=== PATIENT | female | born 1955 | race Caucasian/White ===

== ENCOUNTER → 2019-02-13 | Outpatient (CLI) | payer BC, OTHER ==
[~2019-02-13] MED LIST: ASPIRIN EC81 M1 PO; GLUCOPHAGE1000 MG PO; HYDROCHLOROTHIA25 M1; LISINOPRIL20 MG PO
--- NOTE | 2019-02-15 11:07 | PATH ---
[facility] [place] [address] PATHOLOGY RPT PROCEDURE Name: MAVIS A Room #: REG [facility] Suni.#: [id number] ������������������ Admission: 02/13/19 ������������������ Date of : 53 Discharge: Report #: [id number] Path Case #: [id number] L[facility] Accession Number: [id number] . 01 Material submitted: . PART A: breast - RIGHT POSTERIOR BREAST CALCIFICATIONS. Modifiers: right, posterior PART B: breast - RIGHT ANTERIOR BREAST CALCIFICATIONS. Modifiers: right, anterior . 01 Clinical history: . Right breast calcifications . 02 Diagnosis: A. Breast, right posterior breast, stereotactic needle core biopsy: - Sclerotic and calcified fibroadenoma associated with coarse calcifications. - Negative for atypia or malignancy. . B. Breast, right anterior breast, stereotactic needle core biopsy: - Sclerotic and calcified fibroadenoma associated with coarse calcifications. - Negative for atypia or malignancy. . (IUV:jes; 02/14/2019) MBR/02/14/2019 . 02 Comment: Habilitation Specialist slides were co-reviewed by Dr. Miranda Treviño who concurs with my diagnosis. (IUV:iron erector; 02/14/2019) . 02 Electronically signed: . Martha Rivas MD, Pathologist NPI- [id number] . 01 Gross description: . A. The specimen is received in formalin, labeled "Mavis Blandon, Lizbeth right" and additionally labeled on the requisition as "posterior". Received is a white cassette containing multiple needle cores of yellow-pink fibroadipose tissue measuring 3.4 x 2.3 x 0.5 cm in aggregate which are transferred to cassette A1. See separately are 2 needle cores of yellow lobulated tissue measuring 1.0 cm and 2.8 cm in length and 0.4-0.5 cm in diameter. They are entirely submitted in A2. The specimen was collected at 11:19 AM on 02/13/2019 and placed in formalin at 11:21 AM. The cold ischemic time is 2 minutes and the total formalin fixation time is greater than 6 hours but less [place] [address] PATHOLOGY RPT PROCEDURE Name: MAVIS BLANDON Room #: REG CLI Adeline#: [id number] ������������������ Admission: 02/13/19 ������������������ Date of : 53 Discharge: Report #: [id number] Path Case #: [id number] . B. The specimen is received in formalin, labeled "Mavis Blandon B" and additionally labeled on the requisition as "anterior". Received is a white cassette containing a few needle cores of yellow-pink fibroadipose tissue measuring 1.6 x 1.3 x 0.5 cm in aggregate which are transferred to cassette B1. Also received are multiple needle cores of yellow-pink tissue measuring between 0.7 cm and 2.0 cm in length and 0.2-0.3 cm each in diameter which are entirely submitted in B2-B3. The specimen was collected at 11:28 AM on 02/13/2019 and placed in formalin 11:30 AM. The cold ischemic time is 2 minutes and the total formalin fixation time is greater than 6 hours but less than 72 hours. (SDY; 02/13/2019) SYU/SYU . 02 Pathologist provided ICD-10: D24.1 . 02 CPT . 043592, [id number] Specimen Comment: A courtesy copy of this report has been sent to Specimen Comment: [phone], , . Specimen Comment: Report sent to ,DR JARQUIN / DR MUÑIZ Performed at: [address], [place], [place] [id number] MD Elmo Washington MD Phone: [phone] Performed at: [address] [id number] MD Martha Rivas MD Phone: [phone]
== END | disposition home or self-care (01) ==
LOC: RADSTEREO 04:04
DX: D24.1 Benign neoplasm of right breast (principal); R92.1 Mammographic calcification found on diagnostic imaging of breast; Z98.890 Other specified postprocedural states; Z79.82 Long term (current) use of aspirin; Z79.899 Other long term (current) drug therapy

== ENCOUNTER → 2020-07-17 | Outpatient (CLI) | payer OTHER ==
[~2020-07-17] MED LIST changes: +NAPROSYN500 M1 PO; +VITAMIN B-12500 MC5 SUBLING; +VITAMIN D350 MC3 PO
== END ==
LOC: LAB 11:00
PROVIDERS: ATTEND Orthopaedic Surgery
DX: Z01.812 Encounter for preprocedural laboratory examination (principal); Z20.828 Contact with and (suspected) exposure to other viral communicable diseases

== ENCOUNTER 2020-07-24 12:29 | Observation (INO) | payer OTHER ==
[2020-07-17 12:20] LABS: HEMOGLOBIN 15.7 gm/dL (12.0-15.0); MCH 32.4 pg (26.0-34.0); MCHC 33.4 g/dL (28.0-37.0); RBC 4.85 mil/uL (4.20-5.00); RDW 14.2 % (10.5-14.5); WBC 8.7 thou/uL (4.0-11.0)
[2020-07-17 12:21] LABS: URINE BILIRUBIN NEGATIVE (Negative); URINE BLOOD TRACE (Negative); URINE CLARITY CLEAR; URINE COLOR YELLOW; URINE GLUCOSE-RANDOM* NEGATIVE (Negative); URINE KETONES NEGATIVE (Negative); URINE LEUKOCYTES-REFLEX NEGATIVE (Negative); URINE NITRITE-REFLEX NEGATIVE (Negative); URINE PROTEIN (DIPSTICK) NEGATIVE (Negative); URINE SPECIFIC GRAVITY 1.025 (1.005-1.035); URINE UROBILINOGEN 0.2 E.U./dl (0.2-1.0)
[2020-07-17 12:35] LABS: PROTIME 9.9 Seconds (9.3-11.4)
[2020-07-17 12:37] LABS: CALCIUM 9.6 mg/dL (8.5-10.1); CREATININE 0.9 mg/dL (0.6-1.0); POTASSIUM 4.3 mmol/L (3.5-5.1)
[~2020-07-24] VITALS: Ht 170.2 cm; Wt 102.1 kg
[2020-07-24 13:53] VITALS: BP 154/92
--- NOTE | 2020-07-24 19:27 | NUR ---
PT IS AOX4, VSS, RATES PAIN 3/10 BUT REPORTS SHE IS COMFORTABLE. PT HAS SUSHIL DRESSING CDI, TEDS, POLAR PACK, SCD. CALLS APPROPRIATELY, USED BEDPAN X2. FALL PRECAUTIONS IN PLACE. CALL LIGHT IN REACH. NIGHT NURSE WILL CONTINUE CARE.
--- NOTE | 2020-07-25 01:25 | NUR ---
PT IS ALERT AND ORIENTED.. SHE CALLS WITH NEEDS. USES BEDPAN,VOIDING ADEQUATELY.AFEBRILE.L KNEE WITH SUSHIL DRSG IN PLACE. TEDS AND SCDS IN PLACE. STABLE ON ROOM AIR.LEFT FOOT WITH GOOD CSM.CALLS WITH NEEDS .
[2020-07-25 03:49] VITALS: BP 131/91
[2020-07-25 05:38] LABS: HEMATOCRIT 39.8 % (37.0-47.0); HEMOGLOBIN 13.2 gm/dL (12.0-15.0); MCH 32.2 pg (26.0-34.0); MCHC 33.1 g/dL (28.0-37.0); MCV 97.1 fL (80.0-100.0); RBC 4.1 mil/uL (4.20-5.00); RDW 13.9 % (10.5-14.5); WBC 15.3 thou/uL (4.0-11.0)
[2020-07-25 07:47] VITALS: BP 103/69
--- NOTE | 2020-07-25 09:04 | NUR ---
ASSESSMENT: CM REVIEWED CHART AND SPOKE WITH PT. PT IS S/P LEFT TOTAL KNEE REPLACEMENT. PT IS ALERT AND ORIENTED X4. PT REPORTS LIVING IN A HOUSE WITH HER . PT REPORTS TWO STEPS WITH NO HANDRAIL TO ENTER. PT REPORTS ONCE INSIDE NO STEPS SHE HAS TO USE BUT STATES SHE DOES HAVE ABOUT 16 STEPS WITH HANDRAILS TO THE BASEMENT FOR HER LAUNDRY. PT REPORTS HAVING A CANE, WALKER, ROLLATER WALKER AT HOME. PT REPORTS SHE HAS OUTPATIENT THERAPY ALREADY ARRANGED FOR TOMORROW AT [facility]. CM DISCUSSED ROLE. PT DOES NOT ANTICIPATE HAVING ANY NEEDS AT DISCHARGE. CM WILL CONTINUE TO FOLLOW TO ASSIST NEEDED.
--- NOTE | 2020-07-25 09:11 | NUR ---
ASSUMED CARE AT 0700. PT IS A&O X 4. PT DENIES NUMBNESS OR TINGLING ON LEFT LOWER EXTREMITY. PT COMPLAINS OF PAIN AND AFTER GIVING MORPHINE ER, PT HAS PARTIAL PAIN RELIEF. PT DENIES N/V, SOA. PT IS CURRENTLY ON RA. VSS. IV ON LEFT WRIST IV IS INTACT AND SHOWS NO SIGNS OF REDNESS OR SWELLING. PT IS PLEASANT AND WAITING ON PT/OT. FALL PRECAUTION. CALL LIGHT WITHIN REACH. REGUALAR DIET. PT DENIES STOOL SOFTNER. WILL CONTINUE TO MONITOR FOR PAIN.
[2020-07-25] MEDS ORDERED: ASPIR 8181 MG PO (15:34)
[2020-07-25] MEDS ORDERED: HYDROCODON-ACE1 EAC7 PO (15:34)
[2020-07-25] MEDS ORDERED: MS CONTIN15 MG PO (15:35)
[2020-07-25] MEDS ORDERED: NEURONTIN 300M300 M2 PO (15:35)
--- NOTE | 2020-07-25 15:37 | O ---
[facility] [place] [address] OPERATIVE REPORT Name: DIONI HERNANDES Room #: 442-P [facility] MNedRNed#: [id number] Admission: 07/24/20 Attend Phys: Ren Moore MD Discharge: Date of : 53 Report #: [id number] THIS REPORT FOR: cc: Rishi Brown MD,Rishi Moore,Ren Naranjo MD ~ CC: Rishi Moore DATE OF SERVICE: 07/24/2020 PREOPERATIVE DIAGNOSIS: Left knee osteoarthritis. POSTOPERATIVE DIAGNOSIS: Left knee osteoarthritis. PROCEDURE: Left total knee arthroplasty using Navio robotic assistance. SURGEON: Dr. Ren Moore MACHINE ETCHER: Sadie Hernandes PA-C INDICATIONS FOR MACHINE ETCHER: Throughout the case, extensive retraction and manipulation of the knee was required. This was afforded to me by my assistant operator. ANESTHESIA: LMA with an adductor canal block. IMPLANTS: Garnica and Nephew size 6 Journey II BCS Oxinium femur, a size 3 tibia, size 9 polyethylene and a size 32 patella. TOURNIQUET TIME: 47 minutes. ESTIMATED BLOOD LOSS: 25 mL. COMPLICATIONS: None. SPECIMENS: None. CONDITION UPON LEAVING THE OPERATING ROOM: Stable. INDICATIONS FOR PROCEDURE: The patient is a 64-year-old female with left knee osteoarthritis. She had failed conservative measures for this and after discussion with her, she elected for left total knee arthroplasty. DESCRIPTION OF PROCEDURE: Risks, benefits, alternatives, complications were discussed in detail with the patient including but not limited to risk of anesthesia, risk of damage to nerves, arteries, blood vessels, risk for [facility] [address] [place] [address] OPERATIVE REPORT Name: DIONI HERNANDES Room #: 442-P [facility] Rekha Lr#: [id number] Admission: 07/24/20 Attend Phys: Ren Moore MD Discharge: Date of : 53 Report #: [id number] infection, bleeding, risk for continued knee pain, need for reoperation. Informed consent was obtained from the patient. Left knee was appropriately marked in the preoperative holding area. IV clindamycin was given for preoperative antibiotics. She was brought to the operating room and placed in supine position on operating room table. LMA anesthesia was induced without complication. Tourniquet was placed on the left thigh. Left lower extremity was prepped and draped in normal sterile fashion. Timeout was performed properly identifying the patient and procedure as well as the instrumentation and implants. All in the operating room were in agreement. Left lower extremity was exsanguinated, tourniquet was inflated. Tourniquet time was 47 minutes. Standard midline approach to the knee was made with 10 blade through the skin. Dissection was taken down sharply to the fascia and deep flaps were developed medially and laterally. Fresh 10 blade was used to make a medial parapatellar arthrotomy and the knee was inspected. There was [id number] tricompartmental osteoarthritis. ACL and PCL were removed sharply. Reference pins were placed in the femur and the tibia. The knee was then digitally mapped using the eReceipts robotic system. Intraoperative plan was made and we sized the size 6 femur with a size 3 tibia and a 10 spacer. After acceptance of the intraoperative plan, the distal femoral cut was made with a Navio bur. Distal femoral cutting block was pinned in place and chamfer cuts were made. Attention was turned to the tibia. Remainder of the menisci removed with Bovie cautery. Tibial resection guide was pinned in place using the Navio for placement and tibial resection was made. After this, flexion and extension gaps were checked and found to have good balance in flexion and extension both medially and laterally. Tibia was sized, found to be a size 3. Size 3 tibial trial was placed, pinned and punched. A size 6 femoral trial was placed and box cut was made. This was then trialed with size 9 polyethylene. Size 9 polyethylene demonstrated 1 millimeter laxity medially and laterally throughout range of motion of the knee. A 9 mm was then resected from the posterior surface of the patella and a size 32 patellar trial button was placed. Knee was taken through range of motion, found to be stable, found to have good patellar tracking. Trial components were removed. Bony ends were thoroughly irrigated with normal saline. A final size 3 tibia, size 6 Journey II BCS Oxinium posterior stabilized femur, and a size 32 patella were cemented in place using standard cementation techniques. While the cement cured, a periarticular injection consisting of morphine, ropivacaine, epinephrine and Toradol was placed around the knee joint capsule. After the cement cured, tourniquet was deflated. Hemostasis was obtained with Bovie cautery. Final size 9 polyethylene was placed. A gram of vancomycin was placed deep in the joint. The fascia was closed with 0 Vicryl, skin was closed with 2-0 Vicryl, skin staple and a SUSHIL dressing were applied. The patient tolerated this procedure well and went to recovery room under care of anesthesia postoperatively. <ELECTRONICALLY SIGNED> By: Ren Moore MD 07/25/20 1537 [id number] 1809 Ren Moore MD /nt
[2020-07-25 15:40] VITALS: BP 103/69
== END 2020-07-25 17:04 | disposition home or self-care (01) ==
LOC: OR → TBA 12:29 → OR 12:29 → TBA 12:30 → OR 14:47 → EDSTATUS 14:52 → 4S 17:57 → OR 17:57 → 4S 17:57
PROVIDERS: ADMIT Orthopaedic Surgery; ATTEND Orthopaedic Surgery
DX: M17.12 Unilateral primary osteoarthritis, left knee (principal)
CPT/HCPCS: 50010; 50101; 50415; 50954; 51130; 51225; 51320; 51412; 53000; 53078; 53365; 56527; 56528; 57095; 57103; 57110; 57127; 57180; 62110; 62900; 70005

== ENCOUNTER → 2020-09-12 | Outpatient (CLI) | payer OTHER ==
[~2020-09-12] MED LIST changes: +ASPIR 8181 MG PO; +HYDROCODON-ACE1 EAC7 PO; +MS CONTIN15 MG PO; +NEURONTIN 300M300 M2 PO; +TYLENOL325 M1 PO
== END ==
LOC: LAB 12:25
PROVIDERS: ATTEND Student in an Organized Health Care Education/Training Program
DX: Z01.812 Encounter for preprocedural laboratory examination (principal); Z20.822 Contact with and (suspected) exposure to COVID-19

== ENCOUNTER → 2020-09-16 | Day surgery (SDC) | payer OTHER ==
--- NOTE | 2020-09-12 10:56 | NUR ---
CNO APPROVED FOR PT TO HAVE DAUGHTER AND COME WITH HER FOR DAY OF SURGERY (09/16/20).
[~2020-09-16] VITALS: Ht 170.2 cm; Wt 93.0 kg
--- NOTE | ~2020-09-16 | O ---
[facility] [address] [address] OPERATIVE REPORT Name: DIONI HERNANDES Room #: REG [facility] [place]..#: [id number] Admission: 09/16/20 Attend Phys: Ren Moore MD Discharge: Date of : 53 Report #: [id number] THIS REPORT FOR: cc: Rishi Brown MD, David A. MD Abraham,Ren Naranjo MD ~ DATE OF SERVICE: 09/16/2020 PREOPERATIVE DIAGNOSIS: Left knee arthrofibrosis, status post total knee arthroplasty. POSTOPERATIVE DIAGNOSIS: Left knee arthrofibrosis, status post total knee arthroplasty. PROCEDURE: Left knee manipulation under anesthesia. SURGEON: Ren Moore MD. ANESTHESIA: MAC. COMPLICATIONS: None. CONDITION POSTPROCEDURE: Stable. INDICATIONS FOR PROCEDURE: The patient is a 65-year-old female who is about 6 weeks out from a left total knee arthroplasty. She has plateaued with therapy and having significant stiffness in her knee. After discussion with her and her family, they elected for manipulation under anesthesia. DESCRIPTION OF PROCEDURE: Risks, benefits, alternatives, complications were discussed in detail with the patient including but not limited to risk of anesthesia, risk of intraoperative fracture, need for further procedures. Informed consent was obtained from the patient. Left knee was appropriately marked in the preoperative holding area, and she was brought to the PACU and monitored anesthesia care was induced without complication. Timeout was performed properly identifying the patient and procedure. All in the PACU were in agreement. The left knee was then examined passively and her range of motion at the beginning was from 0-90 degrees. The knee was then gently manipulated in flexion and final range of motion was from 0-120 degrees. X-ray was then brought in to verify that there was no periprosthetic fracture as was the case. [facility] [address] [place] [address] OPERATIVE REPORT Name: DIONI HERNANDES Room #: REG SD Adeline#: [id number] Admission: 09/16/20 Attend Phys: Ren Moore MD Discharge: Date of : 53 Report #: [id number] She was awoken from the procedure and remained in the PACU under care of anesthesia postprocedure. By: 1629 1746 Ren Moore MD /nt
[2020-09-16 12:01] VITALS: BP 127/80
== END | disposition home or self-care (01) ==
LOC: OR 08:43
PROVIDERS: ATTEND Orthopaedic Surgery
DX: M24.662 Ankylosis, left knee (principal); Z96.652 Presence of left artificial knee joint; Z20.828 Contact with and (suspected) exposure to other viral communicable diseases; Z98.890 Other specified postprocedural states; Z88.0 Allergy status to penicillin; Z88.2 Allergy status to sulfonamides
CPT/HCPCS: 50010; 50101; 62110; 62850; 70005

== ENCOUNTER → 2021-07-09 | Outpatient (CLI) | payer OTHER ==
[~2021-07-09] MED LIST changes: +MELOXICAM15 MG PO; +MULTI VITAMIN1 EACH PO; +VITAMIN B122500 MCG PO; +VITAMIN D325 MC2 PO
[2021-07-09 11:56] LABS: HEMATOCRIT 45.1 % (37.0-47.0); HEMOGLOBIN 14.9 gm/dL (12.0-15.0); MCH 32.7 pg (26.0-34.0); MCHC 33.1 g/dL (28.0-37.0); MCV 98.9 fL (80.0-100.0); RBC 4.56 mil/uL (4.20-5.00); RDW 14.1 % (10.5-14.5); WBC 9.1 thou/uL (4.0-11.0)
[2021-07-09 11:58] LABS: URINE BILIRUBIN NEGATIVE (Negative); URINE BLOOD NEGATIVE (Negative); URINE CLARITY CLEAR; URINE COLOR YELLOW; URINE GLUCOSE-RANDOM* NEGATIVE (Negative); URINE KETONES NEGATIVE (Negative); URINE LEUKOCYTES-REFLEX NEGATIVE (Negative); URINE NITRITE-REFLEX NEGATIVE (Negative); URINE PROTEIN (DIPSTICK) NEGATIVE (Negative); URINE UROBILINOGEN 0.2 E.U./dl (0.2-1.0)
[2021-07-09 12:12] LABS: ALBUMIN 3.8 g/dL (3.4-5.0); CALCIUM 9.3 mg/dL (8.5-10.1); POTASSIUM 4.3 mmol/L (3.5-5.1)
[2021-07-09 12:17] LABS: INR 0.92; PROTIME 10.1 Seconds (10.5-12.1)
== END ==
LOC: PAC 05:48
PROVIDERS: ATTEND Orthopaedic Surgery
DX: M16.12 Unilateral primary osteoarthritis, left hip (principal)

== ENCOUNTER 2021-07-21 11:35 | Inpatient (IN) | payer OTHER ==
[~2021-07-21] VITALS: Ht 170.2 cm; Wt 109.5 kg
[2021-07-21 13:18] VITALS: BP 149/95
--- NOTE | 2021-07-21 19:11 | NUR ---
ASSUMED CARE OF PT FROM PACU. PT HAD LT TTL HIP REPLACEMENT. PT HAS SUSHIL DRESSING, C/D/I WITH ICE PACK, KIRTI'S AND SCD'S. PT IS A/OX4 AND ASSESSMENTS WERE PERFORMED BY RN ALONG WITH CARE PLAN. MEDS AND TX GIVEN NEEDED AND SCHEDULED. FALL PRECAUTIONS ARE IN PLACE. CALL LIGHT AND OTHER NEEDS ARE IN REACH. WILL MONITOR AND NOTE ANY CHANGES.
[2021-07-21 19:40] VITALS: BP 150/89
--- NOTE | 2021-07-22 02:03 | NUR ---
ASSUMED PT CARE AT 1900.L HIP DRSG C/D/I.ICE PACK/KIRTI HOSE AND SCD IN PLACE.PT CONT ON IVF AND IV ABX.WBAT.FALL AND HIP PRECAUTIONS MAINTAINED.CALL LIGHT WITHIN REACH.
[2021-07-22 05:34] VITALS: BP 130/79
[2021-07-22 09:16] VITALS: BP 135/76
--- NOTE | 2021-07-22 09:29 | NUR ---
LEFT RUT,S/P day one. 65-year-old female, A & o x 3, and able to make her needs know. Getting ready to work with physical therapy and getting out of bed. She had knee surgery in Aug 2020. Independent when feeling well. Lives as at home with she Neftali. 2 steps to enter home and steps to the basement. Has fww already from her past knee surgery. No hh. been to [facility] in the past and going to go to outpatient therapy again. Will cont. following as needed if needs arise.
--- NOTE | 2021-07-22 12:07 | NUR ---
RE-ASSUMED CARE OF PT THIS MORNING AT 0700. PT REPORT FROM NIGHT NURSE STATED NO CHANGES AND PT DIDN'T C/O PAIN. ASSESSMENTS NOTED IN CHART AND OTHERWISE UNREMARKABLE. FALL PRECAUTIONIS ARE IN PLACE, CALL LIGHT AND OTHER NEEDS ARE IN REACH. PHYS THERAPY EVALUATED PT AND STATED PT CAN BE DISCHARGED TO HOME. MEDS AND TX GIVEN NEEDED AND SCHEDULED. WILL MONITOR AND NOTE ANY CHANGES.
[2021-07-22 13:49] VITALS: BP 135/76
--- NOTE | 2021-07-23 12:34 | O ---
[facility] [place] [address] OPERATIVE REPORT Name: DIONI HERNANDES Room #: 440-P [facility] M.R.#: [id number] Admission: 07/21/21 Attend Phys: Ren Moore MD Discharge: 07/22/21 Date of : 53 Report #: [id number] THIS REPORT FOR: cc: Rishi Brown MD, David A. MD Abraham,Ren Naranjo MD ~ DATE OF SERVICE: 07/21/2021 PREOPERATIVE DIAGNOSIS: Left hip osteoarthritis. POSTOPERATIVE DIAGNOSIS: Left hip osteoarthritis. PROCEDURE: Left total hip arthroplasty. SURGEON: Ren Moore MD HEADING MACHINE OPERATOR: Sadie Hernandes PA-C INDICATION FOR HEADING MACHINE OPERATOR: Throughout the case, extensive retraction, manipulation of the hip including dislocation and reduction was required. This was afforded to me by my players assistant. ANESTHESIA: LMA. IMPLANTS: A Garnica and Nephew size 58 R3 acetabular cup with 2 acetabular screws, a size 14 high offset Synergy press-fit stem, a size 40+0 Oxinium head, and a single Accord cerclage cable for prophylactic femur fixation. ESTIMATED BLOOD LOSS: 150 mL. COMPLICATIONS: None. SPECIMENS: None. CONDITION UPON LEAVING THE OR: Stable. INDICATIONS FOR PROCEDURE: The patient is a 65-year-old female with severe left hip osteoarthritis. She had failed conservative measures for this and after discussion with her, she elected for left total hip arthroplasty. DESCRIPTION OF PROCEDURE: Risks, benefits, alternatives, complications were discussed in detail with the patient including but not limited to risk of anesthesia, risk of damage to nerves, arteries, blood vessels, risk for infection, bleeding, risk for leg length discrepancy, instability and need for reoperation. Informed consent was obtained from the patient. Left hip was appropriately marked in the preoperative holding area. IV Ancef was given for [facility] [address] [place] [address] OPERATIVE REPORT Name: CHANCELLORDIONI Lizbeth Room #: 440-P [facility].#: [id number] Admission: 07/21/21 Attend Phys: Ren Moore MD Discharge: 07/22/21 Date of : 53 Report #: [id number] preoperative antibiotics. She was brought to the operating room and placed in the supine position on the operating room table. LMA anesthesia was induced without complications. She was then placed in the right lateral decubitus position with the left hip uppermost. Left hip and lower extremity were prepped and draped in normal sterile fashion. Timeout was performed properly identifying the patient, procedure as well as the instrumentation and implants. All in the operating room in agreement. Standard posterior approach to the hip was made with 10 blade through the skin. Dissection was taken down to the fascia with Bovie cautery and Lerma elevator was used to clean off the fascia. Fresh 10 blade was used to make a fascial incision. This was taken proximally and distally with curved Oliva scissor. Charnley retractor was placed. Trochanteric bursa was taken down with Bovie cautery. Piriformis tendon was identified, tagged and taken down with Bovie cautery. Short external rotators were also taken down with Bovie cautery. Capsulotomy was made and capsule ends were tagged for later repair. The hip was dislocated. There was extensive osteoarthritic change of the femoral head with flattening of the head. A femoral neck cut was made 1 cm proximal to the lesser trochanter based on preoperative templating and the femoral head was removed. Deep acetabular retractors were placed. Labrum was removed sharply. Pulvinar was removed with Bovie cautery. Acetabulum was then sequentially reamed up to a size 58, at which point there was excellent bleeding cancellous bone. A size 57 trial cup was placed, found to have a good fit. Final size 58 R3 acetabular cup was placed and seated. Two acetabular screws were placed for backup fixation and a polyethylene liner for a size 40 head was placed. Attention was turned to the femur. This was reamed and broached up to a size 14, at which point the size 14 broach was stable, was trialed with a high offset neck and a 40+0 head. Hip was reduced, taken through range of motion, found to be stable, found to have equal leg lengths. Hip was dislocated. The broach was removed. A single Accord cerclage cable was placed around the proximal femur for prophylactic fixation and a size 14 high offset Synergy press-fit stem was placed and seated. This was trialed again with a 40+0 head. Hip was reduced, taken through range of motion, found to be stable, found to have equal leg lengths. Hip was dislocated one last time. A final size 40+0 Oxinium head was placed. Hip was reduced, taken through range of motion, found to be stable, found to have equal leg lengths. The joint was thoroughly irrigated with normal saline. A periarticular injection consisting of morphine, ropivacaine, epinephrine, and Toradol was placed around the hip joint capsule. A gram of vancomycin was placed deep in the joint. The capsule and piriformis were repaired with 0 FiberWire. Fascia was closed with 0 Vicryl. Skin was closed with 2-0 Vicryl, skin staple and a SUSHIL dressing was applied. The patient tolerated this procedure well and went to recovery room under care of Anesthesia postoperatively. <ELECTRONICALLY SIGNED> By: Ren Moore MD 07/23/21 1234 [id number] 1636 Ren Moore MD /nt
== END 2021-07-22 18:25 | disposition home or self-care (01) | DRG 470 ==
LOC: OR 11:35 → TBA 11:36 → OR 13:05 → 4S 16:20
PROVIDERS: ADMIT Orthopaedic Surgery; ATTEND Orthopaedic Surgery
PROC: 0SRB06A Replacement of Left Hip Joint with Oxidized Zirconium on Polyethylene Synthetic Substitute, Uncemented, Open Approach (ICD-10-PCS; principal; 2021-07-21)
DX: M16.12 Unilateral primary osteoarthritis, left hip (principal); Z20.822 Contact with and (suspected) exposure to COVID-19; Z96.651 Presence of right artificial knee joint; Z88.0 Allergy status to penicillin; Z88.2 Allergy status to sulfonamides; Z23 Encounter for immunization; Z82.61 Family history of arthritis; Z80.0 Family history of malignant neoplasm of digestive organs; Z83.42 Family history of familial hypercholesterolemia; Z83.3 Family history of diabetes mellitus
CPT/HCPCS: 10102; 50010; 50101; 50382; 50414; 51412; 53000; 53078; 53368; 54118; 56524; 56527; 56528; 56530; 57095; 57103; 57496; 62110; 62900; 70005